=== PATIENT | male | born 1985 | race Caucasian/White ===

== ENCOUNTER 2019-01-17 10:25 | Emergency (ER) | payer BC ==
[~2019-01-17] VITALS: Ht 182.9 cm; Wt 77.1 kg
[2019-01-17 10:25] VITALS: BP_SYST 137
--- NOTE | 2019-01-17 10:25 | NUR ---
BROUGHT IN BY [facility], TRIAGED, REPORT GIVEN TO AJAY
--- NOTE | 2019-01-17 10:38 | NUR ---
ER Dr. SALGADO at bedside examining patient.
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
[2019-01-17 11:21] LABS: BILIRUBIN,URINE NEGATIVE (NEGATIVE); BLOOD, URINE NEGATIVE (NEGATIVE); CLARITY/URINE CLEAR (CLEAR); COLOR,URINE YELLOW (YELLOW); GLUCOSE,URINE NEGATIVE (NEGATIVE); KETONES,URINE NEGATIVE (NEGATIVE); LEUKOCYTE ESTERASE ,URINE NEGATIVE (NEGATIVE); NITRITE, URINE NEGATIVE (NEGATIVE); PH,URINE 6.5 (5.0-8.0); PROTEIN URINE NEGATIVE (NEGATIVE); UROBILINOGEN,URINE 0.2 (0.2-1.0)
[2019-01-17 11:34] LABS: METHAMPHETAMINES SCREEN,URINE POSITIVE (NEG <=500); URINE AMPHETAMINE POSITIVE (NEG <=500)
[2019-01-17 11:35] LABS: BENZODIAZEPINE, URINE NEGATIVE (NEG <=150); CANNABINOID, URINE NEGATIVE (NEG <=50); COCAINE, URINE NEGATIVE (NEG <=150); OPIATE, URINE NEGATIVE (NEG <=100); PHENCYCLIDINE SCREEN,URINE NEGATIVE (NEG <=25); UR TRICYCLIC ANTIDEPRESSANTS NEGATIVE (NEG <=300); URINE METHADONE NEGATIVE (NEG <=200); URINE OXYCODONE SCREEN POSITIVE (NEG <=100); URINE PROPOXYPHENE SCREEN NEGATIVE (NEG <=300)
[2019-01-17 11:36] LABS: BARBITURATE, URINE NEGATIVE (NEG <=200)
[2019-01-17 11:55] LABS: WHITE BLOOD COUNT (AUTO) 7.7 K/uL (4.8-10.8)
[2019-01-17 11:56] LABS: BASOPHILS % (AUTO) 0.6 % (0.0-2.0); EOSINOPHILS % (AUTO) 8.5 % (0.0-4.0); HEMATOCRIT 40.1 % (36-54); HEMOGLOBIN 13.2 g/dL (14.0-18.0); LYMPHOCYTES # (AUTO) 2.6 K/uL (1.0-5.5); LYMPHOCYTES % (AUTO) 34.3 % (20.5-51.5); MEAN CORPUSCULAR HEMOGLOBIN 29 pg (27-31); MEAN CORPUSCULAR HGB CONC 33 % (32-36); MEAN CORPUSCULAR VOLUME 89 fL (79.0-98.0); MONOCYTES # (AUTO) 0.5 K/uL (0.0-1.0); NEUTROPHILS # (AUTO) 3.8 K/uL (1.8-7.7); NEUTROPHILS % (AUTO) 49.6 % (40.0-70.0); PLATELET COUNT (AUTO) 347 K/uL (130-430); RED BLOOD CELL COUNT(AUTO) 4.51 MIL/uL (4.2-6.2); RED CELL DISTRIBUTION WIDTH 13.1 % (9.0-15.0)
[2019-01-17 11:57] LABS: EOSINOPHILS # (AUTO) 0.7 K/uL (0.0-0.4)
[2019-01-17 12:01] LABS: CALCIUM 9.3 mg/dL (8.4-11.0); CREATININE 0.78 mg/dL (0.55-1.30); POTASSIUM 4.3 mmol/L (3.5-5.1)
[2019-01-17 12:06] LABS: ALBUMIN 3.9 g/dL (3.4-4.8); TOTAL BILIRUBIN 0.2 mg/dL (0.0-1.0)
--- NOTE | 2019-01-17 12:17 | NUR ---
DR SALGADO SPEAKING WITH PT RE:TEST RESULTS
--- NOTE | 2019-01-17 12:30 | NUR ---
Patient given written and verbal discharge instructions and verbalizes understanding. ER MD discussed with patient the results and treatment provided. Patient in stable condition. ID arm band removed. NO RX given. Patient educated on pain management and to follow up with PMD. Pain Scale 0/10. Opportunity for questions provided and answered. Medication side effect fact sheet provided.
[2019-01-17 12:33] VITALS: BP_SYST 137
== END 2019-01-17 12:30 | disposition home or self-care (01) ==
LOC: SED 10:25
DX: R60.9 Edema, unspecified (principal); F15.10 Other stimulant abuse, uncomplicated; F17.200 Nicotine dependence, unspecified, uncomplicated; F41.9 Anxiety disorder, unspecified; F32.9 Major depressive disorder, single episode, unspecified; R03.0 Elevated blood-pressure reading, without diagnosis of hypertension; Z71.6 Tobacco abuse counseling
CPT/HCPCS: 36415; 80053; 80307; 81003; 85025; 99283

== ENCOUNTER 2020-01-06 01:54 | Emergency (ER) | payer BC ==
[~2020-01-06] VITALS: Ht 182.9 cm; Wt 77.1 kg
[2020-01-06 02:00] VITALS: BP_SYST 137
--- NOTE | 2020-01-06 02:00 | NUR ---
Patient triaged and placed in waiting room. VSS and patient appears in no acute distress at this time. Accompanied by SELF, awaiting available bed, and MD notified of need for MSE.
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
--- NOTE | 2020-01-06 02:30 | NUR ---
call pt name in the wr,No answer.
--- NOTE | 2020-01-06 02:35 | NUR ---
call pt name in the wr,No answer.
--- NOTE | 2020-01-06 02:40 | NUR ---
call pt name in the wr,No answer.
--- NOTE | 2020-01-06 04:00 | NUR ---
pt came back,Radiology notified for CT head.
--- NOTE | 2020-01-06 04:45 | NUR ---
Emerson Villarreal from radiology pt is not in the wr.
== END 2020-01-06 04:00 | disposition left against medical advice (07) ==
LOC: SED 01:54
DX: R06.02 Shortness of breath (principal); V89.2XXA Person injured in unspecified motor-vehicle accident, traffic, initial encounter; Y93.89 Activity, other specified; Y92.413 State road as the place of occurrence of the external cause; Y99.8 Other external cause status

== ENCOUNTER 2020-01-10 11:21 | Emergency (ER) | payer SELFPAY ==
[~2020-01-10] VITALS: Ht 182.9 cm; Wt 79.4 kg
[2020-01-10 11:26] VITALS: BP_SYST 135
--- NOTE | 2020-01-10 11:35 | NUR ---
Patient to ER bed 7 to gown for evaluation. Side rails up. Report given to Alejandra Marroquin.
--- NOTE | 2020-01-10 11:38 | NUR ---
KISHA Matson at bedside examining patient.
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
[2020-01-10] MEDS ORDERED: KETOROLAC TROMETHAMINE 30 MG VIAL IM ONE (11:45)
--- NOTE | 2020-01-10 11:49 | NUR ---
pt refused Toradol IM. States that he took and Oxycodone 20mins ago
--- NOTE | 2020-01-10 12:11 | NUR ---
pt eloped from the hospital w/out having a CT scan done. made aware
== END 2020-01-10 12:11 | disposition left against medical advice (07) ==
LOC: SED 11:21
DX: R51 Headache (principal); F41.9 Anxiety disorder, unspecified; V43.52XA Car driver injured in collision with other type car in traffic accident, initial encounter; Y93.89 Activity, other specified; Y92.413 State road as the place of occurrence of the external cause; Y99.8 Other external cause status
CPT/HCPCS: 99281; J1885

== ENCOUNTER 2020-01-29 22:32 | Emergency (ER) | payer SELFPAY ==
[~2020-01-29] VITALS: Ht 182.9 cm; Wt 73.9 kg
[2020-01-29 22:38] VITALS: BP_SYST 151
[2020-01-30 00:40] VITALS: BP_SYST 144
== END 2020-01-30 00:40 | disposition home or self-care (01) ==
LOC: SED 22:32
DX: R51 Headache (principal); F41.9 Anxiety disorder, unspecified; I10 Essential (primary) hypertension; F17.290 Nicotine dependence, other tobacco product, uncomplicated; V49.9XXA Car occupant (driver) (passenger) injured in unspecified traffic accident, initial encounter; Y93.89 Activity, other specified; Y92.413 State road as the place of occurrence of the external cause; Y99.8 Other external cause status
CPT/HCPCS: 70450-TC; 99284

== ENCOUNTER 2021-06-27 03:48 | Emergency (ER) | payer SELFPAY ==
[~2021-06-27] VITALS: Ht 182.9 cm; Wt 79.4 kg
--- NOTE | 2021-06-27 03:55 | NUR ---
Patient to ER bed 7for evaluation. Side rails up. Report given to NAILA ARENAS.
[2021-06-27 04:00] VITALS: BP_SYST 148
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
--- NOTE | 2021-06-27 04:16 | NUR ---
ER at bedside examining patient.
--- NOTE | 2021-06-27 04:20 | NUR ---
PT REFUSED TO GET EAR IRRIGATED AND STATED HE WANTS AN MRI. DR BEATTY INFORMED.
--- NOTE | 2021-06-27 04:35 | NUR ---
Patient given verbal discharge instructions and verbalizes understanding. ER MD discussed with patient the results and treatment provided. Patient in stable condition. ID arm band removed. Patient educated on pain management and to follow up with PMD. Pain Scale 0/10. Opportunity for questions provided and answered. Medication side effect fact sheet provided. PT LEFT WITHOUT WRITTEN DISCHARGE.
[2021-06-27 04:38] VITALS: BP_SYST 148
== END 2021-06-27 04:38 | disposition home or self-care (01) ==
LOC: SED 03:48
DX: H61.23 Impacted cerumen, bilateral (principal); H92.01 Otalgia, right ear; F41.9 Anxiety disorder, unspecified; F32.9 Major depressive disorder, single episode, unspecified
CPT/HCPCS: 99281

== ENCOUNTER 2023-11-30 11:08 | Emergency (ER) | payer MEDICAID ==
[~2023-11-30] VITALS: Ht 182.9 cm; Wt 81.6 kg
[2023-11-30 11:10] VITALS: BP_SYST 143; PULSE 103; RESP 18; TEMP 98.7; O2SAT 98
[2023-11-30] MEDS ORDERED: HYDROcodone/ACETAMIN 10-325 MG TAB PO ONE (11:45)
[2023-11-30] MEDS ORDERED: IBUPROFEN 800 MG TABLET PO ONE (11:45)
[2023-11-30 11:57] VITALS: BP_SYST 143; PULSE 103; RESP 18; TEMP 98.7; O2SAT 98
== END 2023-11-30 11:57 ==
LOC: SED 11:08
DX: M54.30 Sciatica, unspecified side (principal); G89.29 Other chronic pain; M54.50 Low back pain, unspecified; F17.210 Nicotine dependence, cigarettes, uncomplicated; Z79.899 Other long term (current) drug therapy
CPT/HCPCS: 99283